=== PATIENT | female | born 1990 | race Caucasian/White ===

== ENCOUNTER 2017-10-18 18:05 | Observation (INO) | payer BC ==
[~2017-10-18 18:05] MED LIST: ALBU17AE26
== END 2017-10-18 19:00 | disposition home or self-care (01) ==
LOC: SPU 18:05
PROVIDERS: ADMIT Specialist; ATTEND Specialist
DX: O36.8120 Decreased fetal movements, second trimester, not applicable or unspecified (principal); Z3A.27 27 weeks gestation of pregnancy
CPT/HCPCS: 81002-TC; G0378

== ENCOUNTER 2018-05-15 20:31 | Emergency (ER) | payer SELFPAY ==
[~2018-05-15] VITALS: Ht 157.5 cm; Wt 97.1 kg
[2018-05-15 21:40] VITALS: BP_SYST 134
[2018-05-15 22:23] VITALS: BP_SYST 134
== END 2018-05-15 22:23 | disposition home or self-care (01) ==
LOC: SED 20:31
DX: L03.115 Cellulitis of right lower limb (principal); R21 Rash and other nonspecific skin eruption; R03.0 Elevated blood-pressure reading, without diagnosis of hypertension; J45.909 Unspecified asthma, uncomplicated; Z90.49 Acquired absence of other specified parts of digestive tract
CPT/HCPCS: 99283

== ENCOUNTER 2020-07-12 03:06 | Emergency (ER) | payer BC ==
[~2020-07-12] VITALS: Ht 157.5 cm; Wt 108.9 kg
--- NOTE | 2020-07-12 03:08 | NUR ---
Placed in room 3 . Placed on swing saw operator, blood pressure machine and pulse oximeter. To gown for exam. Side rails up. Report given to Aleksandra DAWN.
[2020-07-12 03:10] VITALS: BP_SYST 115
--- NOTE | 2020-07-12 03:10 | NUR ---
PT PRESENTS FROM HOME BIB GRANDMOTHER FOR VAGINAL BLEEDING BEGINNING THURSDAY. 30 MIN PRIOR TO ARRIVAL PT REPORTS BLEEDING HEAVILY AND PASSING LARGE CLOTS AND FEELING DIZZY. GAVE 5 MONTHS AGO. DENIES BEING ON CONTRACEPTIVES AND DOES NOT KNOW IF SHE COULD BE OR NOT. REPORTS FEELING CRAMPING PAIN IN LOWER ABD. AAOX4, V/S STABLE UPON ARRIVAL
--- NOTE | 2020-07-12 03:12 | NUR ---
ER DR. ENGLAND AT THE BEDSIDE EVALUATING PT
[2020-07-12] MEDS ORDERED: NACL 0.9% 1,000 ML IV ONE (03:30)
--- NOTE | 2020-07-12 03:30 | NUR ---
# 20 gauge angiocath placed to LAC. Use of asceptic technique. Opsite placed over site. Blood return noted. Blood for lab drawn from site. Flushed with 10 cc of normal saline. No evidence of infiltration noted. Patient tolerated well.
[2020-07-12 03:48] LABS: BASOPHILS % (AUTO) 0.4 % (0.0-2.0); EOSINOPHILS # (AUTO) 0.3 K/uL (0.0-0.4); HEMATOCRIT 37.3 % (36-48); HEMOGLOBIN 12.7 g/dL (12.0-16.0); LYMPHOCYTES # (AUTO) 2.6 K/uL (1.0-5.5); LYMPHOCYTES % (AUTO) 34.3 % (20.5-51.5); MEAN CORPUSCULAR HEMOGLOBIN 31 pg (27-31); MEAN CORPUSCULAR HGB CONC 34 % (32-36); MEAN CORPUSCULAR VOLUME 91 fL (79.0-98.0); MONOCYTES # (AUTO) 0.4 K/uL (0.0-1.0); MONOCYTES % (AUTO) 5.5 % (1.7-9.3); NEUTROPHILS # (AUTO) 4.3 K/uL (1.8-7.7); NEUTROPHILS % (AUTO) 55.8 % (40.0-70.0); PLATELET COUNT (AUTO) 326 K/uL (130-430); RED BLOOD CELL COUNT(AUTO) 4.09 MIL/uL (4.2-6.2); RED CELL DISTRIBUTION WIDTH 12.7 % (9.0-15.0); WHITE BLOOD COUNT (AUTO) 7.7 K/uL (4.8-10.8)
[2020-07-12 03:58] LABS: CALCIUM 8.3 mg/dL (8.4-11.0); CREATININE 0.6 mg/dL (0.55-1.30); POTASSIUM 3.6 mmol/L (3.5-5.1)
--- NOTE | 2020-07-12 04:10 | NUR ---
US AT THE BEDSIDE
[2020-07-12 04:24] LABS: ALBUMIN 3.7 g/dL (3.4-4.8); TOTAL BILIRUBIN 0.2 mg/dL (0.0-1.0)
--- NOTE | 2020-07-12 05:00 | NUR ---
Patient resting quietly. No acute distress noted. Vital signs within normal range.
[2020-07-12 06:28] VITALS: BP_SYST 127
== END 2020-07-12 06:29 | disposition home or self-care (01) ==
LOC: SED 03:06
DX: O03.9 Complete or unspecified spontaneous abortion without complication (principal); Z3A.01 Less than 8 weeks gestation of pregnancy
CPT/HCPCS: 36415; 76801; 76817; 80053; 84702; 85025; 96360; 99284; J7030

== ENCOUNTER 2021-02-20 14:44 | Emergency (ER) | payer BC ==
[~2021-02-20] VITALS: Ht 157.5 cm; Wt 108.9 kg
[2021-02-20 14:54] VITALS: BP_SYST 118
[2021-02-20 15:25] LABS: BILIRUBIN,URINE NEGATIVE (NEGATIVE); BLOOD, URINE 3+ (NEGATIVE); CLARITY/URINE SL CLOUDY (CLEAR); COLOR,URINE YELLOW (YELLOW); GLUCOSE,URINE NEGATIVE (NEGATIVE); KETONES,URINE NEGATIVE (NEGATIVE); LEUKOCYTE ESTERASE ,URINE 1+ (NEGATIVE); NITRITE, URINE NEGATIVE (NEGATIVE); PROTEIN URINE TRACE (NEGATIVE); UROBILINOGEN,URINE 0.2 (0.2-1.0)
[2021-02-20 15:48] LABS: BASOPHILS % (AUTO) 0.3 % (0.0-2.0); EOSINOPHILS # (AUTO) 0.1 K/uL (0.0-0.4); EOSINOPHILS % (AUTO) 1.6 % (0.0-4.0); HEMATOCRIT 32.8 % (36-48); HEMOGLOBIN 11.5 g/dL (12.0-16.0); LYMPHOCYTES # (AUTO) 1.9 K/uL (1.0-5.5); LYMPHOCYTES % (AUTO) 25.2 % (20.5-51.5); MEAN CORPUSCULAR HEMOGLOBIN 31 pg (27-31); MEAN CORPUSCULAR HGB CONC 35 % (32-36); MEAN CORPUSCULAR VOLUME 88 fL (79.0-98.0); MONOCYTES # (AUTO) 0.3 K/uL (0.0-1.0); MONOCYTES % (AUTO) 4.1 % (1.7-9.3); NEUTROPHILS # (AUTO) 5.3 K/uL (1.8-7.7); NEUTROPHILS % (AUTO) 68.8 % (40.0-70.0); PLATELET COUNT (AUTO) 239 K/uL (130-430); RED BLOOD CELL COUNT(AUTO) 3.72 MIL/uL (4.2-6.2); WHITE BLOOD COUNT (AUTO) 7.7 K/uL (4.8-10.8)
[2021-02-20 16:00] LABS: BACTERIA,URINE MODERATE /HPF (None Seen); MUCUS,URINE 1+ /LPF (None Seen)
[2021-02-20 16:21] LABS: CALCIUM 8.4 mg/dL (8.4-11.0); CREATININE 0.6 mg/dL (0.55-1.30); POTASSIUM 3.7 mmol/L (3.5-5.1)
[2021-02-20 16:49] LABS: ALBUMIN 2.9 g/dL (3.4-4.8); TOTAL BILIRUBIN 0.3 mg/dL (0.0-1.0)
[2021-02-20 18:57] VITALS: BP_SYST 117
== END 2021-02-20 18:58 | disposition home or self-care (01) ==
LOC: SED 14:44
DX: O20.0 Threatened abortion (principal); J45.909 Unspecified asthma, uncomplicated; Z79.899 Other long term (current) drug therapy; Z3A.16 16 weeks gestation of pregnancy
CPT/HCPCS: 36415; 76805-TC; 80053; 81000; 81025; 84702; 85025; 86900; 86901; 87086; 99284